=== PATIENT | female | born 1950 | race Caucasian/White ===

== ENCOUNTER 2020-04-17 21:09 | Emergency (ER) | payer MEDICARE, BC ==
[~2020-04-17] VITALS: Ht 160 cm; Wt 68.9 kg
[2020-04-17 21:16] VITALS: BP 145/73
== END 2020-04-17 22:18 | disposition home or self-care (01) ==
LOC: ER 21:14
DX: S62.617A Displaced fracture of proximal phalanx of left little finger, initial encounter for closed fracture (principal); Z90.89 Acquired absence of other organs; Z88.0 Allergy status to penicillin; W01.0XXA Fall on same level from slipping, tripping and stumbling without subsequent striking against object, initial encounter; Y93.89 Activity, other specified; Y92.89 Other specified places as the place of occurrence of the external cause; Y99.8 Other external cause status
CPT/HCPCS: 73130-TC